=== PATIENT | male | born 1985 | race Hispanic/Latino ===

== ENCOUNTER 2017-07-25 16:20 | Emergency (ER) | payer OTHER ==
[2017-07-25 16:32] VITALS: BP 128/77; PULSE 71; RESP 16; TEMP 98; O2SAT 100
[2017-07-25] MEDS ORDERED: Absorbable Gelatin Sponge Size 100 TP ONE (17:42)
[2017-07-25] MEDS ORDERED: Absorbable Gelatin Sponge Size 12-7 ONE (18:37)
--- NOTE | 2017-07-25 19:43 | ED PDOC ---
Upper Extremity Pain/Injury Time Seen by Provider: 07/25/17 16:50 Chief Complaint (Nursing): Upper Extremity Problem/Injury Chief Complaint (Provider): Finger injury History Per: Patient History/Exam Limitations: no limitations Onset/Duration Of Symptoms: Hrs (today) Current Symptoms Are (Timing): Still Present Quality: "Pain" Additional Complaint(s): Josiah Castellanos is a 32 year old male, with no significant past medical history, who presents to the emergency department for a sustained injury to right 5th digit onset today at work. Patient reports he accidentally sliced with a knife the distal tip of right 5th digit, mostly involving half of nail. Tetanus shot is not up to date. He denies any numbness, decreased ROM, or other injuries. No further medical complaints. PMD: None provided. Past Medical History Reviewed: Historical Data, Nursing Documentation, Vital Signs Vital Signs: Last Vital Signs Temp 98.0 F 07/25/17 16:29 Pulse 71 07/25/17 16:29 Resp 16 07/25/17 16:29 BP 128/77 07/25/17 16:29 Pulse Ox 100 07/25/17 16:29 - Medical History PMH: No Chronic Diseases - Surgical History Surgical History: No Surg Hx - Family History Family History: States: Unknown Family Hx - Social History Current smoker - smoking cessation education provided: No Alcohol: None Drugs: Denies - Immunization History Hx Tetanus Toxoid Vaccination: No - Home Medications Home Medications: Ambulatory Orders Medication Instructions Recorded Cephalexin [Keflex] 500 mg PO Q6 #28 capsule 07/25/17 - Allergies Allergies/Adverse Reactions: Allergies Allergy/AdvReac Type Severity Reaction Status Date / Time No Known Allergies Allergy Verified 07/25/17 16:29 Review of Systems ROS Statement: Except As Marked, All Systems Reviewed And Found Negative Musculoskeletal: Positive for: Hand Pain (right 5th digit injury. ) Neurological: Negative for: Numbness Physical Exam - Reviewed Nursing Documentation Reviewed: Yes Vital Signs Reviewed: Yes - Physical Exam Comments: SKIN: Warm, dry; (-) cyanosis. Hand: (+) Tenderness, Skin avulsion and partial nail avulsion in distal tip of 5th digit. Sensation and capillary refill intact. (-) swelling, (-) ecchymosis of right hand. (-) deformity. (-) snuff-box tenderness. (-) distal neurovascular deficit. - ECG O2 Sat by Pulse Oximetry: 100 (RA) Pulse Ox Interpretation: Normal Medical Decision Making Medical Decision Making: Initial Impression: Fingertip avulsion Initial Plan: --Adacel 0.5 ml IM --Gelfoam size 100 I spg Tp --Keflex 500 mg PO --Tylenol 325mg tab 975mg PO --reevaluation Wound irrigated with water. Gelfoam dressing applied, bleeding controlled, clean dressing applied. 19:35 Advised to follow up with referral physician in 1-2 days without fail. Advised to take medication as prescribed. Return to the emergency room at any time for any new or worsening symptoms. Patient states he fully agrees with and understands discharge instructions. States that he agrees with the plan and disposition. Verbalized and repeated discharge instructions and plan. I have given the patient opportunity to ask any additional questions. ~ Scribe Attestation: Documented by Teodoro Davenport, acting as a scribe for Wandy Dooley PA-C. Provider Scribe Attestation: All medical record entries made by the Scribe were at my direction and personally dictated by me. I have reviewed the chart and agree that the record accurately reflects my personal performance of the history, physical exam, medical decision making, and the department course for this patient. I have also personally directed, reviewed, and agree with the discharge instructions and disposition. Disposition - Clinical Impression Clinical Impression: Fingertip avulsion - Patient ED Disposition Is Patient to be Admitted: No Counseled Patient/Family Regarding: Diagnosis, Need For Followup, Rx Given - Disposition Referrals: Bhupinder Malone MD [Medical Doctor] - Disposition Time: 19:35 Condition: STABLE Additional Instructions: Thank you for letting us take care of you today. You were treated for fingertip avulsion. The emergency medical care you received today was directed at your acute symptoms. If you were prescribed any medication, please fill it and take as directed. It may take several days for your symptoms to resolve. Return to the Emergency Department if your symptoms worsen, do not improve, or if you have any other problems. Please contact one of the physicians/clinics you have been referred to that are listed on the Patient Visit Information form that is included in your discharge packet. Bring any paperwork you were given at discharge with you along with any medications you are taking to your follow up visit. Our treatment cannot replace ongoing medical care by a primary care provider (PCP) outside of the emergency department. Thank you for allowing the [facility] team to be part of your care today. 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
== END 2017-07-25 19:39 | disposition home or self-care (01) ==
LOC: H.ER 16:20
DX: S61.209A Unspecified open wound of unspecified finger without damage to nail, initial encounter (principal); W26.0XXA Contact with knife, initial encounter; Y99.0 Civilian activity done for income or pay